=== PATIENT | female | born 1945 | race Caucasian/White ===

== ENCOUNTER 2018-09-16 10:20 | Emergency (ER) | payer OTHER, BC ==
[~2018-09-16] VITALS: Ht 160 cm; Wt 82.6 kg
[2018-09-16 10:26] VITALS: Ht 160 cm; Wt 82.6 kg
[2018-09-16 13:01] VITALS: BP 122/55
== END 2018-09-16 13:01 | disposition home or self-care (01) ==
LOC: ED 10:20
DX: M54.5 Low back pain (principal); J20.8 Acute bronchitis due to other specified organisms; I10 Essential (primary) hypertension; E78.00 Pure hypercholesterolemia, unspecified

== ENCOUNTER 2020-04-07 16:30 | Emergency (ER) | payer BC, SELFPAY ==
[~2020-04-07] VITALS: Ht 167.6 cm; Wt 84.4 kg
[2020-04-07 16:32] VITALS: Ht 167.6 cm; Wt 84.4 kg
[2020-04-07 18:21] LABS: BASOPHIL % 0.5 % (0.2-1.3); PLATELET COUNT 262 x10^3mcL (179-408); RED CELL DISTRIBUTION WIDTH 13.8 % (12.3-17.7)
[2020-04-07 18:23] LABS: CARBON DIOXIDE 32.1 mmol/L (21-32); CHLORIDE SERUM 100 mmol/L (98-107); CREATININE SERUM 0.8 mg/dL (0.6-1.0); GLUCOSE SERUM 97 mg/dL (74-106); POTASSIUM SERUM 3.2 mmol/L (3.5-5.1); SODIUM SERUM 140 mmol/L (136-145)
[2020-04-07 18:26] LABS: rbc morphology (normal/abnorm) NORMAL (NORMAL)
[2020-04-07 18:27] LABS: ALKALINE PHOSPHATASE 105 U/L (46-116); ALT/SGPT 65 U/L (14-59); AST/SGOT 35 U/L (15-37); BILIRUBIN TOTAL 0.4 mg/dL (0.20-1.00)
[2020-04-08 00:33] VITALS: BP 130/81
== END 2020-04-08 00:33 | disposition home or self-care (01) ==
LOC: ED 16:30
PROVIDERS: Emergency Medicine
DX: U07.1 COVID-19 (principal); I10 Essential (primary) hypertension; E11.9 Type 2 diabetes mellitus without complications; Z98.890 Other specified postprocedural states
CPT/HCPCS: 83880; 85378; 87804; U0003